=== PATIENT | female | born 1965 | race American Indian/Alaskan Native ===

== ENCOUNTER 2016-07-20 20:57 | Emergency (ER) | payer SELFPAY ==
[2016-07-20] MEDS: LOPRESSOR IV ONE (21:00)
[2016-07-20] MEDS ORDERED: ADRENALIN ONE (21:00)
[2016-07-20] MEDS ORDERED: INDERAL IV ONE (21:00)
[2016-07-20] MEDS ORDERED: CORDARONE IV ONE (21:00)
[2016-07-20] MEDS ORDERED: XYLOCAINE CARDIAC IV ONE (21:00)
[2016-07-20] MEDS ORDERED: CALCIUM CHLORIDE IV ONE (21:00)
[2016-07-20] MEDS ORDERED: LOPRESSOR IV ONE (21:02)
--- NOTE | 2016-07-20 21:34 | Emergency Department Report ---
ED CPR HPI - General Stated Complaint: CARDIAC ARREST Time Seen by Provider: 07/20/16 21:25 - History of Present Illness Initial Comments: 50-year-old female with no known past medical history about in by EMS for cardiac arrest. Patient was was with family and syncopized and EMS was called for a fall. There was no bystander CPR performed. Upon EMS arrival about 5-6 minutes after syncope EMS found the patient to be in V. fib and started CPR and ACLS. Patient had multiple rounds of defibrillation as well as epinephrine and 300 mg of amiodarone on route. She had a Combitube in place. Upon arrival she was still in ventricular fibrillation. Please see code sheet for details. She received 150 mg of amiodarone, 10 mg of metoprolol, 1 amp of calcium chloride, 2 g of magnesium as well as multiple defibrillations. A double defibrillation was attempted with 4 pads at the same time without success. Patients rhythm went to asystole. A bedside echo showed no cardiac activity. The total down time about 25 minutes per EMS prior to arrival as well as 24 minutes in the emergency room made her resuscitation futile. ED Review of Systems ROS: Stated complaint: CARDIAC ARREST Other details as noted in HPI Comment: Unobtainable due to pts medical conditions ED Physical Exam - General Limitations: Other (cardiac arrest) General appearance: other (unresponsive, pale) - Head Head exam: Present: atraumatic - ENT ENT exam: Present: other (combitube present) - Respiratory Respiratory exam: Present: normal lung sounds bilaterally - Cardiovascular Cardiovascular Exam: Present: other (pulseless) - GI/Abdominal GI/Abdominal exam: Present: soft. Absent: distended, tenderness - Extremities Exam Extremities exam: Present: normal inspection - Neurological Exam Neurological exam: Present: other (gcs 3) - Skin Skin exam: Present: intact ED Course - Reevaluation(s) Reevaluation #1: 07/20/16 22:23 I had spoken to family about the course of the patient with EMS and in the emergency room. I explained that the patient despite our resuscitation. Her mother the patient's father also had from sudden cardiac in the recent past. - Consultations Consultation #1: 07/20/16 21:[address] Cedeno during the code, recommended lidocaine bolus x 2, 10 minutes apart. I called him back after patient went into asystole and TOD was called. - Intubation Time Out Performed: No Sedative: none Laryngoscope: Jackson Size: 3 ET Tube Size: 7.5 Tube Secured Depth (cm): 22 Tube Secured Location: lips Tube Placement Confirmation: visualized tube passing t, equal breath sounds bilat, confirmation by capnometr Intubation Complications: difficult intubation ED Medical Decision Making - Medical Decision Making Please see HPI This week and further with the family the patient's brother had a similar situation with sudden unexpected cardiac Critical care attestation.: If time is entered above; I have spent that time in minutes in the direct care of this critically ill patient, excluding procedure time. ED Disposition Clinical Impression: Ventricular fibrillation Disposition: MEDICAL FACILITY Is pt being admited?: No Does the pt Need Aspirin: No Condition: Stable Referrals: PRIMARY CARE, [Primary Care Provider] - 3-5 Days
== END 2016-07-20 23:40 ==
LOC: ED 20:57
DX: I49.01 Ventricular fibrillation (principal)
CPT/HCPCS: 31500; 96374; 99285; J0171; J0282; J1800; J2001